=== PATIENT | female | born 1990 | race African-American/Black ===

== ENCOUNTER 2017-01-22 07:38 | Emergency (ER) | payer SELFPAY ==
[~2017-01-22] VITALS: Ht 162.6 cm; Wt 67.0 kg
[~2017-01-22 07:38] MED LIST: CEPH500 PO; IBUP600 PO; OXYC1SOL5 PO; PERI8.6T PO; PREN0.01 PO
[2017-01-22 07:40] VITALS: BP 123/58; PULSE 100; RESP 15; TEMP 99.5; O2SAT 100
[2017-01-22] MEDS ORDERED: IBUP200C PO (07:53)
[2017-01-22] MEDS ORDERED: IBUPROFEN 800 MG TAB PO ONE (08:00)
[2017-01-22] MEDS ORDERED: MAGICPED SWISH-SPIT (08:07)
[2017-01-22] MEDS ORDERED: IBUP800T23 PO (08:07)
--- NOTE | 2017-01-22 08:14 | PD ---
HPI Chief Complaint: Cold / Flu Symptoms Time Seen by Provider: 08:01 Travel History International Travel<30 days: No Contact w/Intl Traveler<30days: No Traveled to known affect area: No History of Present Illness HPI 26-year-old female presents to the emergency department complaint of sore throat , nasal congestion, fever, body aches 3 days. Reports MAXIMUM TEMPERATURE of 102.0. Reports vomiting one time yesterday. Denies abdominal pain. Reports decreased appetite and fluid intake. Reports decreased urination. Denies ear pain. Denies lump in throat, difficulty swallowing, any drooling. Reports painful swallowing. Denies cough, chest pain, shortness of breath. Took Advil yesterday for symptom management. Symptoms are mild in severity. Has no other medical complaints. No known allergies. No other modifying factors or associated signs and symptoms. PFSH Past Medical History Cancer: No Diabetes: No Diminished Hearing: No Hepatitis: No Hiatal Hernia: No Immunizations Current: No Thyroid Disease: No ?: Unknown : 2 Para: 2 Ovarian Cysts: Yes (PT STATES "FIBRIOD CYSTS" ON LEFT SIDE) Past Surgical History Section: Yes (X2) Other Surgery: Yes (JAW SURGERY) Social History Alcohol Use: No Tobacco Use: No Substance Use: No Allergies-Medications (Allergen,Severity, Reaction): Coded Allergies: No Known Allergies (Verified , 01/22/17) Reported Meds & Prescriptions Reported Meds & Active Scripts Active Amoxicillin 500 Mg Tab 500 Mg PO BID 10 Days Ibuprofen 800 Mg Tab 800 Mg PO Q6HR PRN Magic Mouthwash Pediatric/Adult Liq (Lidocaine/Diphenhydr/Alum/Mg/Simeth) 60 Ml Susp 5 Ml SWISH-SPIT Q3HR PRN Each 5mL contains: Diphenydramine 4.5mg, Viscous Lidocaine 2% 10mg, Maalox Advanced Regular Strength 2.7ml Reported Ibuprofen 200 Mg Cap 200 Mg PO Q4H PRN Review of Systems Except as stated in HPI: all other systems reviewed are Neg Physical Exam Narrative GENERAL: Well-nourished, well-developed female patient, in no acute distress; low-grade fever 99.5; nontoxic-appearing SKIN: Warm and dry. No rash. HEAD: Atraumatic. Normocephalic. EYES: Pupils equal and round at 3 mm with brisk reaction. No scleral icterus. No injection or drainage. PERRLA. ENT: Mucosa pink and dry. Pharynx with 1+ tonsils; with erythema; without exudate. Uvular edema. No uvular, palatal, or tonsillar deviation. Airway patent. EARS: Bilateral pinnae and external canals appear within normal limits. Bilateral tympanic membranes without erythema, dullness or perforation.. NECK: Trachea midline. Anterior cervical lymphadenopathy and tenderness. CARDIOVASCULAR: Regular rate and rhythm. No murmur appreciated. RESPIRATORY: No accessory muscle use. Clear to auscultation. Breath sounds equal bilaterally. GASTROINTESTINAL: Abdomen soft, non-tender, nondistended. Hepatic and splenic margins not palpable. Bowel sounds are active 4 quadrants. MUSCULOSKELETAL: No obvious deformities. No clubbing. No cyanosis. No edema. NEUROLOGICAL: Awake and alert. Oriented 3. No obvious cranial nerve deficits. Motor grossly within normal limits. Normal speech. Moves all extremities. PSYCHIATRIC: Appropriate mood and affect; insight and judgment normal. Data Data Last Documented VS Vital Signs Date Time Temp Pulse Resp B/P Pulse Ox O2 Delivery O2 Flow Rate FiO2 01/22/17 07:40 99.5 100 15 123/58 100 Orders Influenzae A/B Antigen (01/22/17 07:58) Group A Rapid Strep Screen (01/22/17 07:58) Ibuprofen (Motrin) (01/22/17 08:00) Chest, Single Ap (01/22/17 08:01) MDM Medical Decision Making Medical Screen Exam Complete: Yes Emergency Medical Condition: Yes Medical Record Reviewed: Yes Differential Diagnosis Strep pharyngitis, uvulitis, influenza, pneumonia, upper respiratory infection, viral illness Narrative Course 26-year-old female with cold/flu symptoms 3 days. Low-grade fever of 99.5 in the ER. Reports MAXIMUM TEMPERATURE of 102. Patient is nontoxic appearing. Oropharynx is erythemic and uvula is edematous on exam. Patient is in no acute distress and without stridor. Patient given oral fluids and tolerating well. Rapid strep, influenza, chest x-ray ordered. Ibuprofen administered in the ER. 0828: Influenza negative. 0842: Rapid strep positive for group A strep. 0843: Chest x-ray concludes no acute disease. Amoxicillin, Magic mouthwash, ibuprofen prescribed for home. Instructed patient to follow up with primary care provider. Patient verbalizes understanding and agreement with treatment plan. Patient is medically cleared and stable for discharge. Discussed reasons to return to the emergency department. Patient agrees with treatment plan. The patients vital signs are stable and the patient is stable for outpatient follow-up and treatment. Patient discharged home, stable and in no acute distress. Diagnosis Primary Impression: Strep pharyngitis Referrals: Primary Care Physician Patient Instructions: General Instructions, Safe Use of Cough and Cold Medicines (ED), Strep Throat (ED) Departure Forms: Tests/Procedures, Work Release Enter return to work date: Jan 25, 2017 Additional Instructions: Take Antibiotics as prescribed and complete full course of antibiotics Throw away and change your toothbrush 24 hours after starting antibiotics Get plenty of sleep/rest Rest your voice Drink plenty of fluids to prevent dehydration Use warm saltwater gargles to soothe throat pain Use an air humidifier/turn off ceiling fans Use throat lozenges as needed for sore throat Use ibuprofen or acetaminophen as needed to relieve pain and fever Follow-up with your primary care provider within 2-4 days Return immediately to the emergency department with worsening of symptoms Med/Other Pt SpecificInfo: Prescription(s) given Scripts Amoxicillin 500 Mg [id number] Mg PO BID 10 Days Ref 0 Prov:Sheryl Bryson 01/22/17 Ibuprofen 800 Mg Fuz121 Mg PO Q6HR PRN (PAIN) #30 TAB Ref 0 Prov:Sheryl Bryson 01/22/17 Dqfbwocggrvlbdt-Poaymmoyv-Etn-Alum-Simeth Liq (Magic Mouthwash Pediatric/Adult Liq)60 Ml Susp5 Ml SWISH-SPIT Q3HR PRN (SORE THROAT) #60 ML Ref 0 Each 5mL contains: Diphenydramine 4.5mg, Viscous Lidocaine 2% 10mg, Maalox Advanced Regular Strength 2.7ml Prov:Sheryl Bryson 01/22/17 Disposition: 01 DISCHARGE HOME Condition: Stable Sheryl Bryson Jan 22, 2017 08:14
[2017-01-22] MEDS ORDERED: AMOX500T PO (08:29)
--- NOTE | 2017-01-22 08:40 | RADRPT ---
EXAM DATE/TIME: 01/22/2017 08:23 [facility] COMPARISON: CHEST PA & LAT, January 07, 2007, 11:20. INDICATIONS : Sore throat. Fever. MEDICAL HISTORY : None. SURGICAL HISTORY : Tubal ligation. ENCOUNTER: Initial ACUITY: 2 days PAIN SCORE: 0/10 LOCATION: Bilateral chest FINDINGS: A single view of the chest demonstrates the lungs to be symmetrically aerated without evidence of mas s, infiltrate or effusion. The cardiomediastinal contours are unremarkable. Osseous structures are intact. CONCLUSION: No acute disease. Buddy Bravo MD on January 22, 2017 at 8:38 Board Certified Radiologist. This report was verified electronically.
== END 2017-01-22 09:00 | disposition home or self-care (01) ==
LOC: NEPK 07:38
DX: J02.0 Streptococcal pharyngitis (principal); R09.81 Nasal congestion; R50.9 Fever, unspecified; R11.10 Vomiting, unspecified
CPT/HCPCS: 71010; 87804; 87880; 99284

== ENCOUNTER 2017-10-13 21:29 | Emergency (ER) | payer SELFPAY ==
[~2017-10-13] VITALS: Ht 162.6 cm; Wt 70.0 kg
[~2017-10-13 21:29] MED LIST changes: +AMOX500T PO; -CEPH500 PO; +IBUP1TAB7 PO; +IBUP200C PO; -IBUP600 PO; +MAGICPED SWISH-SPIT; -OXYC1SOL5 PO; -PERI8.6T PO; -PREN0.01 PO
[2017-10-13 22:02] VITALS: BP 111/64; PULSE 80; RESP 16; TEMP 98.4; O2SAT 100
--- NOTE | 2017-10-13 22:59 | PD ---
HPI Chief Complaint: Headache Time Seen by Provider: 22:59 Travel History International Travel<30 days: No Contact w/Intl Traveler<30days: No Traveled to known affect area: No History of Present Illness HPI 26-year-old female came to the emergency room with history of headache. Patient says the headache has been going on for past 6-7 days. She has been taking Tylenol but is not getting better. Last Tylenol was at 8 PM. She points her headache at the back of her head all the way to the vertex. Patient says she does get headaches but has never had to come to the emergency room in the past. Currently it is 7-8 out of 10. Vital signs are stable. She does not looks to be in significant distress. No history of fever. No history of neck stiffness. Patient says the light tends to make the headache worse. She has had associated nausea and vomiting. Patient denies any chance of being . PFSH Past Medical History Narrative Medical List of her past medical, surgical, social and family history reviewed from the emergency room. Cancer: No Diabetes: No Diminished Hearing: No Hepatitis: No Hiatal Hernia: No Immunizations Current: No Thyroid Disease: No Tetanus Vaccination: Unknown Influenza Vaccination: No ?: Not LMP: 10/12/2017 : 2 Para: 2 Ovarian Cysts: Yes (PT STATES "FIBRIOD CYSTS" ON LEFT SIDE) Past Surgical History Section: Yes (X2) Other Surgery: Yes (JAW SURGERY) Social History Alcohol Use: No Tobacco Use: No Substance Use: No Allergies-Medications (Allergen,Severity, Reaction): Coded Allergies: No Known Allergies (Verified Adverse Reaction, Unknown, 10/13/17) Comments No known drug allergies Reported Meds & Prescriptions Reported Meds & Active Scripts Active Fioricet (Ucgtcfofqn-Fpaaeovqxuumo-Nlswvyqn) 50-300-40 Mg Cap 1 Cap PO Q4H PRN Colace (Docusate Sodium) 100 Mg Capsule 100 Mg PO BID Ferrous Sulfate 325 Mg (65 Mg Iron) Tablet 325 Mg PO BIDPC Amoxicillin 500 Mg Tab 500 Mg PO BID 10 Days Ibuprofen 800 Mg Tab 800 Mg PO Q6HR PRN Magic Mouthwash Pediatric/Adult Liq (Lidocaine/Diphenhydr/Alum/Mg/Simeth) 60 Ml Susp 5 Ml SWISH-SPIT Q3HR PRN Each 5mL contains: Diphenydramine 4.5mg, Viscous Lidocaine 2% 10mg, Maalox Advanced Regular Strength 2.7ml Reported Ibuprofen 200 Mg Cap 200 Mg PO Q4H PRN Narrative Medication List of her home medications reviewed from the nursing note. Review of Systems Except as stated in HPI: all other systems reviewed are Neg Neurologic: Positive: Headache Physical Exam Narrative GENERAL: Awake, alert, no obvious distress SKIN: Focused skin assessment warm/dry. HEAD: Atraumatic. Normocephalic. EYES: Pupils equal and round. No scleral icterus. No injection or drainage. ENT: No nasal bleeding or discharge. Mucous membranes pink and moist. NECK: Trachea midline. No JVD. Neck is supple, no meningismus CARDIOVASCULAR: Regular rate and rhythm. No murmur appreciated. RESPIRATORY: No accessory muscle use. Clear to auscultation. Breath sounds equal bilaterally. GASTROINTESTINAL: Abdomen soft, non-tender, nondistended. Hepatic and splenic margins not palpable. MUSCULOSKELETAL: No obvious deformities. No clubbing. No cyanosis. No edema. NEUROLOGICAL: Awake and alert. No obvious cranial nerve deficits. Motor grossly within normal limits. Normal speech. PSYCHIATRIC: Appropriate mood and affect; insight and judgment normal. Data Data Last Documented VS Orders Orders Complete Blood Count With Diff (10/13/17 23:06) Basic Metabolic Panel (Bmp) (10/13/17 23:06) Ct Brain W/O Iv Contrast(Rout) (10/13/17 23:06) Ecg Monitoring (10/13/17 23:06) Iv Access Insert/Monitor (10/13/17 23:06) Oximetry (10/13/17 23:06) Sodium Chloride 0.9% Flush (Ns Flush) (10/13/17 23:15) Prochlorperazine Inj (Compazine Inj) (10/13/17 23:15) Sodium Chlor 0.9% 1000 Ml Inj (Ns 1000 M (10/13/17 23:06) Ed Discharge Order (10/14/17 02:45) Labs Laboratory Tests Test 10/13/17 23:30 White Blood Count 6.7 TH/MM3 Red Blood Count 3.82 MIL/MM3 Hemoglobin 7.0 GM/DL Hematocrit 24.1 % Mean Corpuscular Volume 63.1 FL Mean Corpuscular Hemoglobin 18.5 PG Mean Corpuscular Hemoglobin Concent 29.3 % Red Cell Distribution Width 29.6 % Platelet Count 84 TH/MM3 Mean Platelet Volume 9.8 FL Neutrophils (%) (Auto) 52.7 % Lymphocytes (%) (Auto) 38.2 % Monocytes (%) (Auto) 4.9 % Eosinophils (%) (Auto) 2.9 % Basophils (%) (Auto) 1.3 % Neutrophils # (Auto) 3.5 TH/MM3 Lymphocytes # (Auto) 2.6 TH/MM3 Monocytes # (Auto) 0.3 TH/MM3 Eosinophils # (Auto) 0.2 TH/MM3 Basophils # (Auto) 0.1 TH/MM3 CBC Comment AUTO DIFF Differential Comment AUTO DIFF CONFIRMED Platelet Estimate LOW Platelet Morphology Comment ENLARGED Ovalocytes 1+ Acanthocytes OCC Keratocytes OCC Blood Urea Nitrogen 10 MG/DL Creatinine 0.83 MG/DL Random Glucose 102 MG/DL Calcium Level 8.9 MG/DL Sodium Level 142 MEQ/L Potassium Level 3.6 MEQ/L Chloride Level 108 MEQ/L Carbon Dioxide Level 28.1 MEQ/L Anion Gap 6 MEQ/L Estimat Glomerular Filtration Rate 99 ML/MIN MDM Medical Decision Making Medical Screen Exam Complete: Yes Emergency Medical Condition: Yes Medical Record Reviewed: Yes Differential Diagnosis Migraine, status migrainous, intracranial bleed, intracranial tumor Narrative Course 11:25 PM since patient has not had such headaches in the past have ordered a head CT. Awaiting for blood test result. She will be getting IV Compazine and IV fluid for headache. I will reassess her in a bit. 12:37 AM blood test results are back. Patient's hemoglobin and hematocrit is low. Although trending the labs from all the test results she has had here in the past she has been anemic. Hemoglobin has been lower in the past. Patient is otherwise hemodynamically stable and not hemorrhaging. I am comfortable sending her home if the head CT is negative on iron prescription. Procedures EKG Prior to Arrival: No Diagnosis Primary Impression: Headache Qualified Codes: R51 - Headache Additional Impressions: Anemia Qualified Codes: D64.9 - Anemia, unspecified Vomiting Qualified Codes: R11.2 - Nausea with vomiting, unspecified Referrals: [facility] Additional Instructions: Your blood tests showed significant anemia. You have been given iron prescription. Please take it like the prescription direction. On prescription can sometimes cause constipation. There is a prescription for laxative and take it as needed. Drink lots of fluid. Drink caffeinated beverages or coffee since it will make the headache better. Do not drink alcohol or smoke cigarettes. Does not watch television, computer screen or smart for screen for next 24-48 hours. Give rest to your eyes and brain. Med/Other Pt SpecificInfo: Prescription(s) given Scripts Sgzldvigwv-Gnayewbstveqb-Ktqgwxqs (Fioricet) 50-300-40 Mg Cap 1 CAP PO Q4H Y for HEADACHE, #20 CAP 0 Refills Prov: Jamie Griffin MD 10/14/17 Docusate Sodium (Colace) 100 Mg Capsule 100 MG PO BID for Prevent Constipation, #60 CAP 0 Refills Prov: Jamie Griffin MD 10/14/17 Ferrous Sulfate (Ferrous Sulfate) 325 Mg (65 Mg Iron) Tablet 325 MG PO BIDPC for Nutritional Supplement, #60 TAB 0 Refills Prov: Jamie Griffin MD 10/14/17 Disposition: 01 DISCHARGE HOME Condition: Stable Jamie Griffin MD October 13, 2017 22:59
[2017-10-13] MEDS ORDERED: SODIUM CHLOR 0.9% 1000 ML INJ 1,000 ML IV ONE (23:06)
[2017-10-13] MEDS ORDERED: SODIUM CHLORIDE 0.9% FLUSH 10 ML FLUSH IVF PRN (23:15)
[2017-10-13] MEDS ORDERED: PROCHLORPERAZINE INJ 10 MG/2 ML VIAL IVP ONE (23:15)
[2017-10-13 23:46] LABS: AUTOMATED NEUTROPHIL # 3.5 TH/MM3 (1.8-7.7); BASOPHIL # 0.1 TH/MM3 (0-0.2); BASOPHIL % 1.3 % (0.0-2.0); EOSINOPHIL # 0.2 TH/MM3 (0-0.4); EOSINOPHIL % 2.9 % (0.0-4.0); HEMATOCRIT 24.1 % (35.0-46.0); LYMPH % 38.2 % (9.0-44.0); LYMPHOCYTE # 2.6 TH/MM3 (1.0-4.8); MEAN CELL VOLUME 63.1 FL (80.0-100.0); MEAN CORPUSCULAR HEMOGLOBIN 18.5 PG (27.0-34.0); MEAN PLATELET VOLUME 9.8 FL (7.0-11.0); MONO % 4.9 % (0.0-8.0); MONOCYTE # 0.3 TH/MM3 (0-0.9); NEUT % 52.7 % (16.0-70.0); PLATELET COUNT 84 TH/MM3 (150-450); RED BLOOD COUNT 3.82 MIL/MM3 (4.00-5.30); RED CELL DISTRIBUTION WIDTH 29.6 % (11.6-17.2); WHITE BLOOD COUNT 6.7 TH/MM3 (4.0-11.0)
[2017-10-14] LABS: MEAN CORPUSCULAR HGB CONC 29.3 % (32.0-36.0)
[2017-10-14 00:16] LABS: BICARBONATE 28.1 MEQ/L (21.0-32.0); CALCIUM 8.9 MG/DL (8.5-10.1); CREATININE 0.83 MG/DL (0.50-1.00)
[2017-10-14 00:37] LABS: ACANTHOCYTES OCC (NORMAL); KERATOCYTES OCC (NORMAL); OVALOCYTES 1+ (NORMAL)
[2017-10-14] MEDS ORDERED: COLA100C5 PO (00:38)
[2017-10-14] MEDS ORDERED: FERR325T18 PO (00:38)
[2017-10-14] MEDS ORDERED: BUTA1CAP PO (00:38)
--- NOTE | 2017-10-14 02:33 | RADRPT ---
EXAM DATE/TIME: 10/14/2017 02:04 [facility] COMPARISON: No previous studies available for comparison. INDICATIONS : Headache X one week. RADIATION DOSE: 56.35 CTDIvol (mGy) MEDICAL HISTORY : None SURGICAL HISTORY : None. ENCOUNTER: Initial ACUITY: 1 week PAIN SCALE: 6/10 LOCATION: cranial TECHNIQUE: Multiple contiguous axial images were obtained of the head. Using automated exposure control and adj ustment of the mA and/or kV according to patient size, radiation dose was kept as low as reasonably a chievable to obtain optimal diagnostic quality images. DICOM format image data is available electro nically for review and comparison. FINDINGS: CEREBRUM: The ventricles are normal for age. No evidence of midline shift, mass lesion, hemorrhage or acute in farction. No extra-axial fluid collections are seen. POSTERIOR FOSSA: The cerebellum and brainstem are intact. The 4th ventricle is midline. The cerebellopontine angle i s unremarkable. EXTRACRANIAL: The visualized portion of the orbits is intact. SKULL: The calvaria is intact. No evidence of skull fracture. CONCLUSION: Normal examination. Leon Sal MD on October 14, 2017 at 2:31 Board Certified Radiologist. This report was verified electronically.
--- NOTE | 2017-10-14 02:43 | PD ---
Physical Exam Date Seen by Provider: October 14, 2017 Time Seen by Provider: 02:42 Narrative GENERAL: Well-developed, well-nourished in no apparent distress. Nontoxic appearing. HEAD: Normocephalic, atraumatic. EYES: Pupils equal round and reactive. Extraocular motions intact. No scleral icterus. No injection or drainage. ENT: Nose clear. Throat without erythema, tonsillar hypertrophy or exudate. Uvula midline. Airway patent. NECK: Trachea midline. Supple, nontender, moves head freely. No central bony tenderness or spasm. CARDIOVASCULAR: Regular rate and rhythm without murmurs, gallops, or rubs. RESPIRATORY: Clear to auscultation. Breath sounds equal bilaterally. No wheezes , rales, or rhonchi. GASTROINTESTINAL: Abdomen soft, non-tender, nondistended. No hepato-splenomegaly , or palpable masses. No guarding. EXTREMITIES: No clubbing, cyanosis, or edema. No joint tenderness. BACK: Nontender without deformity. No flank tenderness. NEUROLOGICAL: Awake, alert and oriented x 3 .Cranial nerves grossly intact. Motor and sensory grossly within normal limits. Normal speech. Data Data Last Documented VS Vital Signs Date Time Temp Pulse Resp B/P (MAP) Pulse Ox O2 Delivery O2 Flow Rate FiO2 10/13/17 22:02 98.4 80 16 111/64 (80) 100 Orders Orders Complete Blood Count With Diff (10/13/17 23:06) Basic Metabolic Panel (Bmp) (10/13/17 23:06) Ct Brain W/O Iv Contrast(Rout) (10/13/17 23:06) Ecg Monitoring (10/13/17 23:06) Iv Access Insert/Monitor (10/13/17 23:06) Oximetry (10/13/17 23:06) Sodium Chloride 0.9% Flush (Ns Flush) (10/13/17 23:15) Prochlorperazine Inj (Compazine Inj) (10/13/17 23:15) Sodium Chlor 0.9% 1000 Ml Inj (Ns 1000 M (10/13/17 23:06) Labs Laboratory Tests Test 10/13/17 23:30 White Blood Count 6.7 TH/MM3 Red Blood Count 3.82 MIL/MM3 Hemoglobin 7.0 GM/DL Hematocrit 24.1 % Mean Corpuscular Volume 63.1 FL Mean Corpuscular Hemoglobin 18.5 PG Mean Corpuscular Hemoglobin Concent 29.3 % Red Cell Distribution Width 29.6 % Platelet Count 84 TH/MM3 Mean Platelet Volume 9.8 FL Neutrophils (%) (Auto) 52.7 % Lymphocytes (%) (Auto) 38.2 % Monocytes (%) (Auto) 4.9 % Eosinophils (%) (Auto) 2.9 % Basophils (%) (Auto) 1.3 % Neutrophils # (Auto) 3.5 TH/MM3 Lymphocytes # (Auto) 2.6 TH/MM3 Monocytes # (Auto) 0.3 TH/MM3 Eosinophils # (Auto) 0.2 TH/MM3 Basophils # (Auto) 0.1 TH/MM3 CBC Comment AUTO DIFF Differential Comment AUTO DIFF CONFIRMED Platelet Estimate LOW Platelet Morphology Comment ENLARGED Ovalocytes 1+ Acanthocytes OCC Keratocytes OCC Blood Urea Nitrogen 10 MG/DL Creatinine 0.83 MG/DL Random Glucose 102 MG/DL Calcium Level 8.9 MG/DL Sodium Level 142 MEQ/L Potassium Level 3.6 MEQ/L Chloride Level 108 MEQ/L Carbon Dioxide Level 28.1 MEQ/L Anion Gap 6 MEQ/L Estimat Glomerular Filtration Rate 99 ML/MIN MDM Medical Record Reviewed: Yes Supervised Visit with DORETHA: Yes Interpretation(s) Last [address] 10/13/17 2306 Signed Impressions: Service Date/Time: Saturday, October 14, 2017 02:04 - CONCLUSION: Normal examination. Leon Sal MD Differential Diagnosis MDM: High Differential diagnoses: Subarachnoid hemorrhage, intracranial bleed, aneurysm, pseudotumor, migraine, cluster headache, atypical migraine, temporal arteritis, connective tissue disorder, hypertension, temporal arteritis, sinusitis, sinus headache,malingering Narrative Course The patient has had improvement in her headache. Patient has anemia as well as vomiting. Patient will be discharged home on iron and Fioricet. Diagnosis Primary Impression: Headache Qualified Codes: R51 - Headache Additional Impressions: Anemia Qualified Codes: D64.9 - Anemia, unspecified Vomiting Qualified Codes: R11.2 - Nausea with vomiting, unspecified Referrals: [facility] Patient Instructions: General Instructions Additional Instruction: Your blood tests showed significant anemia. You have been given iron prescription. Please take it like the prescription direction. On prescription can sometimes cause constipation. There is a prescription for laxative and take it as needed. Drink lots of fluid. Drink caffeinated beverages or coffee since it will make the headache better. Do not drink alcohol or smoke cigarettes. Does not watch television, computer screen or smart for screen for next 24-48 hours. Give rest to your eyes and brain. Med/Other Pt SpecificInfo: Prescription(s) given Scripts Pzcdvghxpf-Zcwqqsgdubtgh-Urqbgdhk (Fioricet) 50-300-40 Mg Cap 1 CAP PO Q4H Y for HEADACHE, #20 CAP 0 Refills Prov: Jamie Griffin MD 10/14/17 Docusate Sodium (Colace) 100 Mg Capsule 100 MG PO BID for Prevent Constipation, #60 CAP 0 Refills Prov: Jamie Griffin MD 10/14/17 Ferrous Sulfate (Ferrous Sulfate) 325 Mg (65 Mg Iron) Tablet 325 MG PO BIDPC for Nutritional Supplement, #60 TAB 0 Refills Prov: Jamie Griffin MD 10/14/17 Disposition: 01 DISCHARGE HOME Condition: Stable Adam Shaffer October 14, 2017 02:43
== END 2017-10-14 03:07 | disposition home or self-care (01) ==
LOC: NEPD 21:29
DX: R51 Headache (principal); D64.9 Anemia, unspecified; R11.2 Nausea with vomiting, unspecified
CPT/HCPCS: 70450; 80048; 85025; 96361; 96374; 99284; J0780; J7030

== ENCOUNTER 2017-11-28 19:34 | Emergency (ER) | payer SELFPAY ==
[~2017-11-28] VITALS: Ht 162.6 cm; Wt 75.0 kg
[~2017-11-28 19:34] MED LIST changes: +BUTA1CAP PO; +COLA100C5 PO; +FERR325T18 PO
[2017-11-28 19:38] VITALS: BP 121/59; PULSE 86; RESP 16; TEMP 99.1; O2SAT 100
--- NOTE | 2017-11-28 20:32 | RADRPT ---
EXAM DATE: 11/28/2017 7:57 PM EDT AGE/SEX: 26 years / Female INDICATIONS: Pain in anterior proximal right foot due to fall. CLINICAL DATA: This is the patient's initial encounter. Patient reports that signs and symptoms have been present for 1 day and indicates a pain score of 8/10. MEDICAL/SURGICAL HISTORY: None. None. COMPARISON: No prior exams available for comparison. FINDINGS: No acute fracture or dislocation. No bony destructive changes or abnormal periosteal reaction. CONCLUSION: No acute findings. Electronically signed by: Adam Greenberg MD 11/28/2017 8:31 PM EDT
[2017-11-28] MEDS ORDERED: MOBI15TA PO (22:02)
--- NOTE | 2017-11-28 22:02 | PD ---
HPI Chief Complaint: Injury Time Seen by Provider: 20:57 Travel History International Travel<30 days: No Contact w/Intl Traveler<30days: No Traveled to known affect area: No History of Present Illness HPI 26-year-old female complains of right foot pain. Patient states that she fell and injured his right foot. Patient states that the pain is sharp pain started in front of the right ankle with radiation to the distal aspect of the right foot. Patient states the pain is sharp pain. Patient states that the pain is worse with weightbearing. On a scale of 1-10 the pain is a 7. PFSH Past Medical History Cancer: No Diabetes: No Diminished Hearing: No Hepatitis: No Hiatal Hernia: No Hypertension: No Immunizations Current: No Thyroid Disease: No ?: Not : 2 Para: 2 Ovarian Cysts: Yes (PT STATES "FIBRIOD CYSTS" ON LEFT SIDE) Past Surgical History Section: Yes (X2) Other Surgery: Yes (JAW SURGERY) Social History Alcohol Use: No Tobacco Use: No Substance Use: No Allergies-Medications (Allergen,Severity, Reaction): Coded Allergies: No Known Allergies (Verified Adverse Reaction, Unknown, 11/28/17) Reported Meds & Prescriptions Reported Meds & Active Scripts Active Review of Systems General / Constitutional: No: Fever Eyes: No: Visual changes HENT: No: Headaches Cardiovascular: No: Chest Pain or Discomfort Respiratory: No: Shortness of Breath Gastrointestinal: No: Abdominal Pain Genitourinary: No: Dysuria Musculoskeletal: Positive: Pain Skin: No Rash Neurologic: No: Weakness Psychiatric: No: Depression Endocrine: No: Polydipsia Hematologic/Lymphatic: No: Easy Bruising Physical Exam Narrative GENERAL: Well-nourished, well-developed patient. SKIN: Focused skin assessment warm/dry. HEAD: Normocephalic. EYES: No scleral icterus. No injection or drainage. NECK: Supple, trachea midline. No JVD or lymphadenopathy. CARDIOVASCULAR: Regular rate and rhythm without murmurs, gallops, or rubs. RESPIRATORY: Breath sounds equal bilaterally. No accessory muscle use. GASTROINTESTINAL: Abdomen soft, non-tender, nondistended. MUSCULOSKELETAL: No cyanosis, or edema. BACK: Nontender without obvious deformity. No CVA tenderness. Examination of the right foot shows moderate tenderness on palpation dorsal aspect the right foot from the base of the ankle was considered metatarsals area. Full range of motion of the toes. Data Data Last Documented VS Vital Signs Date Time Temp Pulse Resp B/P (MAP) Pulse Ox O2 Delivery O2 Flow Rate FiO2 11/28/17 19:38 99.1 86 16 121/59 (79) 100 Orders Orders Foot, Complete ([id number]) (11/28/17 ) Splint Or Brace Apply/Monitor (11/28/17 21:51) MDM Medical Decision Making Medical Screen Exam Complete: Yes Emergency Medical Condition: Yes Interpretation(s) Last Impressions Foot X-Ray 11/28/17 0000 Signed Impressions: CONCLUSION: No acute findings. Differential Diagnosis Differential diagnosis including contusion, sprain, fracture. Narrative Course 26-year-old female with right foot injury. Diagnosis Primary Impression: Right foot sprain Qualified Codes: S93.601A - Unspecified sprain of right foot, initial encounter Patient Instructions: General Instructions Additional Instructions: Mobic as needed for pain. Ice pack elevation. Follow-up with orthopedist. Repeat x-ray in a week to 10 days if persistent pain. Med/Other Pt SpecificInfo: Prescription(s) given Scripts Meloxicam (Mobic) 15 Mg Tab 15 MG PO DAILY for Pain, #20 TAB 0 Refills Prov: Yasmany Winston MD 11/28/17 Disposition: 01 DISCHARGE HOME Condition: Stable Yasmany Winston MD Nov 28, 2017 22:02
== END 2017-11-28 22:17 | disposition home or self-care (01) ==
LOC: NEPD 19:34
DX: S93.601A Unspecified sprain of right foot, initial encounter (principal); W19.XXXA Unspecified fall, initial encounter
CPT/HCPCS: 73630; 99283